=== PATIENT | male | born 1965 | race Caucasian/White ===

== ENCOUNTER 2023-06-21 17:53 | Inpatient (IN) | payer OTHER ==
[2023-06-21] MEDS ORDERED: Guaifenesin DM 100-10/5 ML UDCUP PO PRN (19:27)
[2023-06-21] MEDS ORDERED: Ondansetron PF 4 MG/2 ML Vial IVP PRN (19:27)
[2023-06-21] MEDS ORDERED: HYDROcodone/Acetaminophen 5/325 mg Tablet PO PRN (19:27)
[2023-06-21] MEDS ORDERED: Glucagon 1 MG/ML KIT IM PRN (19:27)
[2023-06-21] MEDS ORDERED: Calcium Carbonate 500 MG ChewTAB PO PRN (19:27)
[2023-06-21] MEDS ORDERED: Senokot S 8.6-50 MG TAB PO PRN (19:27)
[2023-06-21] MEDS ORDERED: Acetaminophen 325 MG TAB PO PRN (19:27)
[2023-06-21] MEDS ORDERED: HumaLOG 300 UNITS/3 ML VIAL SC PRN (19:27)
[2023-06-21] MEDS ORDERED: Dextrose 5% in Water 1,000 ML IV PRN (19:27)
[2023-06-21] MEDS ORDERED: Dextrose 50% Abboject 50 ML SYRINGE SLOW IVP PRN (19:27)
[2023-06-21] MEDS ORDERED: Ipratropium/Albuterol 3 ML NEB NEB PRN (19:34)
[2023-06-21] MEDS ORDERED: LevoFLOXacin 750 mg/D5W 750 MG in Premix 1 BAG IVPB SCH (20:00)
[2023-06-21 20:04] LABS: Anion Gap 16 mmol/L (10-20); BUN (Urea Nitrogen) 28 mg/dL (8.4-25.7); Calc. Creatinine Clearance 175 mL/min (70-130); Calcium 8.5 mg/dL (7.8-10.44); Carbon Dioxide 24 mmol/L (22-29); Chloride 100 mmol/L (98-107); Estimated GFR 79; Glucose 133 mg/dL (70-105); Potassium 3.5 mmol/L (3.5-5.1); Sodium 136 mmol/L (136-145)
[2023-06-21 20:11] LABS: Troponin I 0.027 ng/mL (< 0.028)
[2023-06-21] MEDS ORDERED: Potassium Chloride 20 MEQ TAB PO SCH (20:30)
[2023-06-21] MEDS ORDERED: Furosemide 40 MG/4 ML VIAL SLOW IVP SCH (20:30)
[2023-06-21] MEDS: Albumin 25% 25 GM/100 ML BOT IVPB SCH (22:25)
[2023-06-21] MEDS: Apixaban 5 MG TAB PO SCH (22:25)
[2023-06-21] MEDS: Pregabalin 75 MG CAP PO SCH (22:26)
[2023-06-21] MEDS: Atorvastatin Calcium 10 MG TAB PO SCH (22:26)
[2023-06-21] MEDS: guaiFENesin ER 600 MG TAB PO SCH (22:26)
[2023-06-21] MEDS: Tamsulosin HCl 0.4 MG CAP PO SCH (22:29)
[2023-06-21] MEDS: Cefepime 2 GM in Sodium Chloride 0.9% 100 ML IVPB SCH (22:37)
[2023-06-22] MEDS: Ipratropium/Albuterol 3 ML NEB NEB SCH ×4 (01:27→19:08)
[2023-06-22] MEDS: HYDROcodone/Acetaminophen 10/325 mg Tablet PO PRN ×3 (01:52→20:42)
[2023-06-22] MEDS: Albumin 25% 25 GM/100 ML BOT IVPB SCH (04:23)
[2023-06-22 05:06] LABS: Hematocrit 25.8 % (38.8-50.0); Mean Corpuscular Volume 96.6 fl (81.2-95.1); Platelet Count 267 10x3/uL (150-450); RBC Distribution Width 19.4 % (11.5-14.5); Red Blood Cell (RBC) Count 2.67 10x6/uL (4.32-5.72); White Blood Cell (WBC) Count 6.8 10x3/uL (3.5-10.5)
[2023-06-22 05:13] LABS: MDiff Complete? YES
[2023-06-22 05:20] LABS: Anion Gap 15 mmol/L (10-20); BUN (Urea Nitrogen) 29 mg/dL (8.4-25.7); Calc. Creatinine Clearance 168 mL/min (70-130); Calcium 8.5 mg/dL (7.8-10.44); Carbon Dioxide 23 mmol/L (22-29); Chloride 101 mmol/L (98-107); Estimated GFR 75; Glucose 169 mg/dL (70-105); Magnesium 2.2 mg/dL (1.6-2.6); Potassium 3.5 mmol/L (3.5-5.1); Sodium 135 mmol/L (136-145)
[2023-06-22 05:55] LABS: Platelet Adequacy Comment Appears Adequate; RBC Morph Comment Within Normal Limits
[2023-06-22 05:56] LABS: Band 9 % (5-11); Lymphocytes 6 % (21-51); Monocytes 6 % (0-10); Neutrophil 79 % (42-75)
[2023-06-22] MEDS: Furosemide 40 MG/4 ML VIAL SLOW IVP SCH ×2 (06:07→15:37)
[2023-06-22] MEDS: Levothyroxine Sodium 50 MCG TAB PO SCH (06:07)
[2023-06-22] MEDS: Mometasone 100 MCG/PUFF (1 INHALER) INH SCH ×2 (07:55→19:09)
[2023-06-22] MEDS: Potassium Chloride 20 MEQ TAB PO SCH (08:56)
[2023-06-22] MEDS: Polyethylene Glycol 3350 17 GM Packet PO SCH (09:02)
[2023-06-22 09:03] LABS: SARS-CoV-2 NAA Rapid Test Not Detected (NotDetected)
[2023-06-22] MEDS: Fluticasone Propionate Nasal Spray 16 gm Bottle NASAL SCH (09:03)
[2023-06-22] MEDS: Nicotine 21 MG PATCH TD SCH (09:03)
[2023-06-22] MEDS: Cefepime 2 GM in Sodium Chloride 0.9% 100 ML IVPB SCH ×2 (09:03→20:41)
[2023-06-22] MEDS: Apixaban 5 MG TAB PO SCH ×2 (09:04→20:42)
[2023-06-22] MEDS: Multivitamin W/ Minerals 1 TAB PO SCH (09:04)
[2023-06-22] MEDS: Pregabalin 75 MG CAP PO SCH ×3 (09:04→20:41)
[2023-06-22] MEDS: Finasteride 5 MG TAB PO SCH (09:06)
[2023-06-22] MEDS: Loratadine 10 MG TAB PO SCH (09:06)
[2023-06-22] MEDS: guaiFENesin ER 600 MG TAB PO SCH ×2 (09:06→20:42)
[2023-06-22] MEDS: Empagliflozin 25 MG TAB PO SCH (09:06)
[2023-06-22 13:25] LABS: Hemoglobin A1c 6.1 % (4.0-6.0)
[2023-06-22] MEDS: Tamsulosin HCl 0.4 MG CAP PO SCH (20:41)
[2023-06-22] MEDS: Atorvastatin Calcium 10 MG TAB PO SCH (20:42)
[2023-06-23] MEDS: Ipratropium/Albuterol 3 ML NEB NEB SCH ×4 (01:00→19:59)
[2023-06-23] MEDS: HYDROcodone/Acetaminophen 10/325 mg Tablet PO PRN ×4 (02:57→20:48)
[2023-06-23 05:13] LABS: #Basophils 0.1 10x3/uL (0.0-0.2); #Eosinphils 0.2 10x3/uL (0.0-0.5); #Monocytes 0.9 10x3/uL (0.0-1.1); %Basophils 0.8 % (0.0-2.0); %Eosinophils 2.4 % (0.0-6.0); %Lymphocytes 13.3 % (18.0-47.0); %Monocytes 12.3 % (0.0-10.0); %Neutrophils 70.9 % (40.0-75.0); Hematocrit 26.9 % (38.8-50.0); Hemoglobin 8.3 g/dL (13.5-17.5); Mean Corpuscular HGB CONC 30.9 g/dL (32.0-36.0); Mean Corpuscular Hemoglobin 30.6 pg (27.0-33.0); Mean Corpuscular Volume 99.3 fl (81.2-95.1); Platelet Count 262 10x3/uL (150-450); RBC Distribution Width 19.8 % (11.5-14.5); Red Blood Cell (RBC) Count 2.71 10x6/uL (4.32-5.72); White Blood Cell (WBC) Count 7.1 10x3/uL (3.5-10.5)
[2023-06-23 05:20] LABS: Anion Gap 14 mmol/L (10-20); BUN (Urea Nitrogen) 35 mg/dL (8.4-25.7); Calc. Creatinine Clearance 119 mL/min (70-130); Calcium 8.5 mg/dL (7.8-10.44); Carbon Dioxide 25 mmol/L (22-29); Chloride 102 mmol/L (98-107); Estimated GFR 50; Glucose 122 mg/dL (70-105); Potassium 3.5 mmol/L (3.5-5.1); Sodium 137 mmol/L (136-145)
[2023-06-23] MEDS: Furosemide 40 MG/4 ML VIAL SLOW IVP SCH ×2 (05:21→14:17)
[2023-06-23] MEDS: Levothyroxine Sodium 50 MCG TAB PO SCH (05:21)
[2023-06-23 05:23] LABS: Troponin I 0.029 ng/mL (< 0.028)
[2023-06-23] MEDS: Mometasone 100 MCG/PUFF (1 INHALER) INH SCH ×2 (06:30→19:58)
[2023-06-23] MEDS: Apixaban 5 MG TAB PO SCH ×2 (08:56→20:48)
[2023-06-23] MEDS: Nicotine 21 MG PATCH TD SCH (08:56)
[2023-06-23] MEDS: Finasteride 5 MG TAB PO SCH (08:56)
[2023-06-23] MEDS: Multivitamin W/ Minerals 1 TAB PO SCH (08:56)
[2023-06-23] MEDS: Loratadine 10 MG TAB PO SCH (08:56)
[2023-06-23] MEDS: Potassium Chloride 20 MEQ TAB PO SCH (08:56)
[2023-06-23] MEDS: Pregabalin 75 MG CAP PO SCH ×3 (08:57→20:49)
[2023-06-23] MEDS: Empagliflozin 25 MG TAB PO SCH (08:57)
[2023-06-23] MEDS: Fluticasone Propionate Nasal Spray 16 gm Bottle NASAL SCH (08:58)
[2023-06-23] MEDS: guaiFENesin ER 600 MG TAB PO SCH ×2 (08:58→20:48)
[2023-06-23] MEDS: Polyethylene Glycol 3350 17 GM Packet PO SCH (08:59)
[2023-06-23] MEDS: Cefepime 2 GM in Sodium Chloride 0.9% 100 ML IVPB SCH ×2 (09:19→20:49)
[2023-06-23] MEDS: Atorvastatin Calcium 10 MG TAB PO SCH (20:47)
[2023-06-23] MEDS: Tamsulosin HCl 0.4 MG CAP PO SCH (20:47)
[2023-06-24] MEDS: Ipratropium/Albuterol 3 ML NEB NEB SCH ×4 (03:17→19:50)
[2023-06-24 05:16] LABS: #Basophils 0.1 10x3/uL (0.0-0.2); #Eosinphils 0.4 10x3/uL (0.0-0.5); #Monocytes 0.9 10x3/uL (0.0-1.1); #Neutrophils 4.4 10x3/uL (1.5-8.4); %Basophils 1.1 % (0.0-2.0); %Eosinophils 5.5 % (0.0-6.0); %Lymphocytes 11.6 % (18.0-47.0); %Monocytes 13.3 % (0.0-10.0); %Neutrophils 68.3 % (40.0-75.0); Hematocrit 27.8 % (38.8-50.0); Hemoglobin 8.4 g/dL (13.5-17.5); Mean Corpuscular HGB CONC 30.2 g/dL (32.0-36.0); Mean Corpuscular Hemoglobin 30.1 pg (27.0-33.0); Mean Corpuscular Volume 99.6 fl (81.2-95.1); Mean Platelet Volume 9.9 fl (7.4-10.4); Platelet Count 261 10x3/uL (150-450); RBC Distribution Width 19.5 % (11.5-14.5); Red Blood Cell (RBC) Count 2.79 10x6/uL (4.32-5.72); White Blood Cell (WBC) Count 6.4 10x3/uL (3.5-10.5)
[2023-06-24] MEDS: Levothyroxine Sodium 50 MCG TAB PO SCH (05:20)
[2023-06-24] MEDS: Furosemide 40 MG/4 ML VIAL SLOW IVP SCH ×2 (05:20→14:12)
[2023-06-24 05:23] LABS: Anion Gap 13 mmol/L (10-20); BUN (Urea Nitrogen) 36 mg/dL (8.4-25.7); Calc. Creatinine Clearance 128 mL/min (70-130); Calcium 8.9 mg/dL (7.8-10.44); Carbon Dioxide 26 mmol/L (22-29); Chloride 104 mmol/L (98-107); Estimated GFR 53; Glucose 128 mg/dL (70-105); Potassium 3.4 mmol/L (3.5-5.1); Sodium 140 mmol/L (136-145)
[2023-06-24] MEDS: Mometasone 100 MCG/PUFF (1 INHALER) INH SCH ×2 (06:45→19:50)
[2023-06-24] MEDS: Nicotine 21 MG PATCH TD SCH (08:53)
[2023-06-24] MEDS: Polyethylene Glycol 3350 17 GM Packet PO SCH (08:53)
[2023-06-24] MEDS: Loratadine 10 MG TAB PO SCH (08:55)
[2023-06-24] MEDS: Empagliflozin 10 MG TAB PO SCH (08:55)
[2023-06-24] MEDS: Multivitamin W/ Minerals 1 TAB PO SCH (08:55)
[2023-06-24] MEDS: Pregabalin 75 MG CAP PO SCH ×3 (08:55→21:18)
[2023-06-24] MEDS: Apixaban 5 MG TAB PO SCH ×2 (08:55→21:18)
[2023-06-24] MEDS: Potassium Chloride 20 MEQ TAB PO SCH (08:55)
[2023-06-24] MEDS: guaiFENesin ER 600 MG TAB PO SCH ×2 (08:55→21:17)
[2023-06-24] MEDS: Fluticasone Propionate Nasal Spray 16 gm Bottle NASAL SCH (08:56)
[2023-06-24] MEDS: Cefepime 2 GM in Sodium Chloride 0.9% 100 ML IVPB SCH ×2 (08:56→21:18)
[2023-06-24] MEDS: Finasteride 5 MG TAB PO SCH (08:56)
[2023-06-24] MEDS ORDERED: Potassium Bicarbonate/Cit Ac 20 MEQ TAB PO SCH (09:45)
[2023-06-24] MEDS: Atorvastatin Calcium 10 MG TAB PO SCH (21:17)
[2023-06-24] MEDS: Tamsulosin HCl 0.4 MG CAP PO SCH (21:17)
[2023-06-24] MEDS: HYDROcodone/Acetaminophen 10/325 mg Tablet PO PRN (21:28)
[2023-06-25] MEDS: Ipratropium/Albuterol 3 ML NEB NEB SCH ×2 (00:50→07:00)
[2023-06-25 05:01] LABS: #Basophils 0.1 10x3/uL (0.0-0.2); #Eosinphils 0.4 10x3/uL (0.0-0.5); #Monocytes 0.7 10x3/uL (0.0-1.1); %Eosinophils 6.6 % (0.0-6.0); %Lymphocytes 12.7 % (18.0-47.0); %Monocytes 12.2 % (0.0-10.0); %Neutrophils 67.2 % (40.0-75.0); Hematocrit 28.6 % (38.8-50.0); Hemoglobin 8.8 g/dL (13.5-17.5); Mean Corpuscular HGB CONC 30.8 g/dL (32.0-36.0); Mean Corpuscular Hemoglobin 30.8 pg (27.0-33.0); Mean Platelet Volume 10.3 fl (7.4-10.4); Platelet Count 235 10x3/uL (150-450); RBC Distribution Width 19.5 % (11.5-14.5); Red Blood Cell (RBC) Count 2.86 10x6/uL (4.32-5.72); White Blood Cell (WBC) Count 5.9 10x3/uL (3.5-10.5)
[2023-06-25 05:06] LABS: Anion Gap 17 mmol/L (10-20); BUN (Urea Nitrogen) 35 mg/dL (8.4-25.7); Calc. Creatinine Clearance 123 mL/min (70-130); Calcium 9.2 mg/dL (7.8-10.44); Carbon Dioxide 23 mmol/L (22-29); Chloride 106 mmol/L (98-107); Estimated GFR 50; Glucose 133 mg/dL (70-105); Potassium 4.5 mmol/L (3.5-5.1); Sodium 141 mmol/L (136-145)
[2023-06-25] MEDS: Levothyroxine Sodium 50 MCG TAB PO SCH (05:32)
[2023-06-25] MEDS: Furosemide 40 MG/4 ML VIAL SLOW IVP SCH (05:34)
[2023-06-25 06:08] VITALS: BMI 52.0
[2023-06-25] MEDS: Mometasone 100 MCG/PUFF (1 INHALER) INH SCH (07:30)
[2023-06-25] MEDS: Apixaban 5 MG TAB PO SCH (09:13)
[2023-06-25] MEDS: guaiFENesin ER 600 MG TAB PO SCH (09:13)
[2023-06-25] MEDS: Pregabalin 75 MG CAP PO SCH (09:13)
[2023-06-25] MEDS: Empagliflozin 10 MG TAB PO SCH (09:13)
[2023-06-25] MEDS: Potassium Chloride 20 MEQ TAB PO SCH (09:13)
[2023-06-25] MEDS: Nicotine 21 MG PATCH TD SCH (09:13)
[2023-06-25] MEDS: Loratadine 10 MG TAB PO SCH (09:13)
[2023-06-25] MEDS: Finasteride 5 MG TAB PO SCH (09:13)
[2023-06-25] MEDS: Cefepime 2 GM in Sodium Chloride 0.9% 100 ML IVPB SCH (09:14)
[2023-06-25] MEDS: Multivitamin W/ Minerals 1 TAB PO SCH (09:14)
[2023-06-25] MEDS: Polyethylene Glycol 3350 17 GM Packet PO SCH (09:15)
[2023-06-25] MEDS: HYDROcodone/Acetaminophen 10/325 mg Tablet PO PRN (09:28)
[2023-06-25 13:01] VITALS: BP 112/56; TEMP 97.6
== END 2023-06-25 12:07 | disposition short-term general hospital (02) | DRG 291 ==
LOC: CSHTELE 17:53
PROVIDERS: ADMIT Internal Medicine; ATTEND Internal Medicine
PROC: 30233J1 Transfusion of Nonautologous Serum Albumin into Peripheral Vein, Percutaneous Approach (ICD-10-PCS; 2023-06-21)
PROC: 0T9B70Z Drainage of Bladder with Drainage Device, Via Natural or Artificial Opening (ICD-10-PCS; principal; 2023-06-22)
PROC: 5A09457 Assistance with Respiratory Ventilation, 24-96 Consecutive Hours, Continuous Positive Airway Pressure (ICD-10-PCS; 2023-06-22)
DX: I11.0 Hypertensive heart disease with heart failure (principal); I50.33 Acute on chronic diastolic (congestive) heart failure; J96.01 Acute respiratory failure with hypoxia; M86.8X7 Other osteomyelitis, ankle and foot; Z68.43 Body mass index [BMI] 50.0-59.9, adult; I42.8 Other cardiomyopathies; I48.0 Paroxysmal atrial fibrillation; J44.9 Chronic obstructive pulmonary disease, unspecified; E87.6 Hypokalemia; E78.5 Hyperlipidemia, unspecified; G47.33 Obstructive sleep apnea (adult) (pediatric); E11.51 Type 2 diabetes mellitus with diabetic peripheral angiopathy without gangrene; E03.9 Hypothyroidism, unspecified; Z96.642 Presence of left artificial hip joint; F17.210 Nicotine dependence, cigarettes, uncomplicated; E88.09 Other disorders of plasma-protein metabolism, not elsewhere classified; N40.0 Benign prostatic hyperplasia without lower urinary tract symptoms; D63.8 Anemia in other chronic diseases classified elsewhere; K59.00 Constipation, unspecified; E66.01 Morbid (severe) obesity due to excess calories; I49.5 Sick sinus syndrome; E11.69 Type 2 diabetes mellitus with other specified complication; Z11.52 Encounter for screening for COVID-19; Z88.1 Allergy status to other antibiotic agents; Z91.048 Other nonmedicinal substance allergy status; Z79.899 Other long term (current) drug therapy; Z79.01 Long term (current) use of anticoagulants; Z95.0 Presence of cardiac pacemaker; Z79.51 Long term (current) use of inhaled steroids; Z79.4 Long term (current) use of insulin; Z98.890 Other specified postprocedural states
CPT/HCPCS: 36415; 36416; 71250; 80048; 83036; 83735; 83880; 84443; 84484; 85025; 93005; 93010; 93306; 94640; 94660; 94760; 94762; 97139; J0692; J1650; J1815; J1940; J3490; J7620; P9047